=== PATIENT | female | born 1995 | race Caucasian/White ===

== ENCOUNTER → 2021-03-31 12:04 | Outpatient (CLI) | payer OTHER, SELFPAY ==
[2021-03-31 13:42] LABS: Free T4, Direct Thyroxine 1.86 ng/dL (0.78-2.19)
[2021-03-31 13:56] LABS: Thyroid Stimulating Hormone 0.034 uIU/mL (0.47-4.68)
== END ==
PROVIDERS: Referring Provider Internal Medicine Endocrinology, Diabetes & Metabolism; Visit Provider Internal Medicine Endocrinology, Diabetes & Metabolism
DX: E89.0 Postprocedural hypothyroidism (principal)
CPT/HCPCS: 36415; 84439; 84443

== ENCOUNTER → 2021-07-02 09:27 | Outpatient (CLI) | payer OTHER, SELFPAY ==
[2021-07-02 10:57] LABS: TSH w/ Reflex to FT4 < 0.02 uIU/mL (0.47-4.68)
[2021-07-02 11:22] LABS: Free T4, Direct Thyroxine 1.56 ng/dL (0.78-2.19)
== END ==
PROVIDERS: Referring Provider Internal Medicine Endocrinology, Diabetes & Metabolism; Visit Provider Internal Medicine Endocrinology, Diabetes & Metabolism
DX: E05.00 Thyrotoxicosis with diffuse goiter without thyrotoxic crisis or storm (principal)
CPT/HCPCS: 36415; 84439; 84443

== ENCOUNTER → 2021-09-07 08:42 | Outpatient (CLI) | payer OTHER, SELFPAY ==
[2021-09-07 11:08] LABS: TSH w/ Reflex to FT4 < 0.02 uIU/mL (0.47-4.68)
[2021-09-07 13:15] LABS: Free T4, Direct Thyroxine 1.91 ng/dL (0.78-2.19)
== END ==
PROVIDERS: Referring Provider Internal Medicine Endocrinology, Diabetes & Metabolism; Visit Provider Internal Medicine Endocrinology, Diabetes & Metabolism
DX: E05.00 Thyrotoxicosis with diffuse goiter without thyrotoxic crisis or storm (principal)
CPT/HCPCS: 36415; 84439; 84443

== ENCOUNTER → 2021-11-24 12:11 | Outpatient (CLI) | payer OTHER, SELFPAY ==
[2021-11-24 14:12] LABS: TSH w/ Reflex to FT4 0.02 uIU/mL (0.47-4.68)
[2021-11-24 14:40] LABS: Free T4, Direct Thyroxine 1.49 ng/dL (0.78-2.19)
== END ==
PROVIDERS: Referring Provider Internal Medicine Endocrinology, Diabetes & Metabolism; Visit Provider Internal Medicine Endocrinology, Diabetes & Metabolism
DX: E05.90 Thyrotoxicosis, unspecified without thyrotoxic crisis or storm (principal)
CPT/HCPCS: 36415; 84439; 84443

== ENCOUNTER → 2022-03-09 09:35 | Outpatient (CLI) | payer OTHER, SELFPAY ==
[2022-03-09 12:03] LABS: TSH w/ Reflex to FT4 0.26 uIU/mL (0.47-4.68)
[2022-03-09 12:48] LABS: Free T4, Direct Thyroxine 1.42 ng/dL (0.78-2.19)
== END ==
PROVIDERS: Referring Provider Internal Medicine Endocrinology, Diabetes & Metabolism; Visit Provider Internal Medicine Endocrinology, Diabetes & Metabolism
DX: E89.0 Postprocedural hypothyroidism (principal)
CPT/HCPCS: 36415; 84439; 84443

== ENCOUNTER → 2022-06-14 17:05 | Outpatient (CLI) | payer OTHER, SELFPAY ==
[2022-06-14 19:08] LABS: TSH w/ Reflex to FT4 1.89 uIU/mL (0.47-4.68)
== END ==
PROVIDERS: Referring Provider Internal Medicine Endocrinology, Diabetes & Metabolism; Visit Provider Internal Medicine Endocrinology, Diabetes & Metabolism
DX: E03.9 Hypothyroidism, unspecified (principal)
CPT/HCPCS: 36415; 84443